=== PATIENT | male | born 1995 | race Caucasian/White ===

== ENCOUNTER 2018-12-23 11:36 | Emergency (ER) | payer SELFPAY ==
[~2018-12-23] VITALS: Ht 198.1 cm; Wt 94.3 kg
[2018-12-23 11:44] VITALS: BP 109/78
--- NOTE | 2018-12-23 12:58 | NUR ---
Patient ambulated to ER bed 10
[2018-12-23] MEDS ORDERED: CLINDAMYCIN 150 MG CAP PO ONE (13:15)
[2018-12-23] MEDS ORDERED: SULFAMETH/TRIMETH DS 800/160MG 1 TAB PO ONE (13:15)
--- NOTE | 2018-12-23 13:44 | NUR ---
C/O LEFT ELBOW / FOREARM PAIN , SWELLING, REDNESS, AND TENDERNESS X 2 DAYS SEEN IN [facility] 2 DAYS AGO---PT STATES HAD BLOOD DRAW SAME ARM PRIOR TO BECOMING RED AND SWELLING +2 RADIAL PULSE <3 SEC CAP REFILL LUE VSS; PATIENT POSITIONED FOR COMFORT; HOB ELEVATED; BEDRAILS UP X2; BED DOWN. ER MD MADE AWARE OF PT STATUS.
[2018-12-23 13:59] VITALS: BP 109/78
--- NOTE | 2018-12-23 14:00 | NUR ---
Patient discharged with v/s stable. Written and verbal after care instructions given and explained. Patient alert, oriented and verbalized understanding of instructions. Ambulatory with steady gait. All questions addressed prior to discharge. ID band removed. Patient advised to follow up with PMD. Rx of BACTRIM AND MOTRIN given. Patient educated on indication of medication including possible reaction and side effects. Opportunity to ask questions provided and answered. HOMELESSNESS APPROVED RESOURCES PROVIDED; HYGIENE PACKET PROVIDED; MEAL PACK PROVIDED.
[2018-12-24] MEDS ORDERED: RIVA20TA PO (03:58)
[2018-12-24] MEDS ORDERED: DOCU-299 PO (03:58)
[2018-12-24] MEDS ORDERED: TRAM50TA1 PO (03:58)
[2018-12-24] MEDS ORDERED: FERR324T11 PO (03:58)
[2018-12-24] MEDS ORDERED: OSIM40TA PO (03:58)
[2018-12-24] MEDS ORDERED: QUET50TA PO (03:58)
[2018-12-24] MEDS ORDERED: ATA25 PO (03:58)
[2018-12-24] MEDS ORDERED: AMLO2.5T PO (03:58)
[2018-12-24] MEDS ORDERED: LEVO5TAB12 PO (03:58)
== END 2018-12-23 14:00 | disposition home or self-care (01) ==
LOC: MED 11:36
DX: L03.114 Cellulitis of left upper limb (principal); F11.90 Opioid use, unspecified, uncomplicated
CPT/HCPCS: 99283

== ENCOUNTER 2018-12-23 17:54 | Inpatient (IN) | payer BC, MEDICAID ==
[~2018-12-23] VITALS: Ht 198.1 cm; Wt 93.9 kg
[2018-12-23 17:57] VITALS: BP 132/87
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
--- NOTE | 2018-12-23 18:10 | NUR ---
PT NOT ABLE TO GIVE URINE AT THIS TIME
--- NOTE | 2018-12-23 18:15 | NUR ---
TELEPSYCH CONSULT REQUEST ENTERED REQUESTED BY DR MUNOZ
[2018-12-23 19:14] LABS: BASOPHILS % (AUTO) 0.2 % (0.0-2.0); EOSINOPHILS % (AUTO) 0.4 % (0.0-4.0); HEMATOCRIT 37.1 % (36-52); HEMOGLOBIN 12.3 g/dL (12.0-18.0); LYMPHOCYTES # (AUTO) 1.7 K/uL (2.0-11.5); LYMPHOCYTES % (AUTO) 12.9 % (20.5-51.1); MEAN CORPUSCULAR HEMOGLOBIN 30 pg (27-31); MEAN CORPUSCULAR HGB CONC 33 g/dL (33-37); MEAN CORPUSCULAR VOLUME 91.2 fL (80-94); MONOCYTES # (AUTO) 1.2 K/uL (0.8-1.0); MONOCYTES % (AUTO) 8.8 % (1.7-9.3); NEUTROPHILS # (AUTO) 10.3 K/uL (1.8-7.7); NEUTROPHILS % (AUTO) 77.7 % (42.2-75.2); PLATELET COUNT (AUTO) 184 K/uL (140-450); RED BLOOD CELL COUNT(AUTO) 4.06 MIL/uL (4.20-6.10); WHITE BLOOD COUNT (AUTO) 13.2 K/uL (4.8-10.8)
--- NOTE | 2018-12-23 19:16 | NUR ---
PT IS NOT ON A HOLD YET, DR. MUNOZ WANT A TELEPSYCHO
[2018-12-23 19:27] LABS: ANION GAP 13.8 (8-16); CARBON DIOXIDE 24.8 mmol/L (21-32); CHLORIDE 101 mmol/L (98-107); CREATININE 0.8 mg/dL (0.7-1.3); GFR ARICAN-AMERICAN 151 mL/min (>90); GLUCOSE 75 mg/dL (74-106); POTASSIUM 3.6 mmol/L (3.5-5.1); SODIUM SERUM 136 mmol/L (136-145); UREA NITROGEN, BLOOD 13 mg/dL (7-18)
[2018-12-23 19:33] LABS: ACETAMINOPHEN < 0.5 ug/ml (10-30); ALBUMIN 3.5 g/dL (3.4-5.0); ASPARTATE AMINOTRANSFERASE 179 U/L (15-37); SALICYLATE 3.3 mg/dL (2.8-20.0)
[2018-12-23] MEDS ORDERED: OLANZapine 5 MG TAB PO SCH (21:00)
[2018-12-23 21:02] LABS: BARBITURATE, URINE NEG. ng/ml (NEG <=200); BENZODIAZEPINE, URINE NEG. ng/mL (NEG <=200); CANNABINOID, URINE POS. ng/mL (NEG <=50); COCAINE, URINE NEG. ng/mL (NEG <=300); OPIATE, URINE NEG. ng/mL (NEG <=2000); PHENCYCLIDINE SCREEN,URINE NEG. ng/mL (NEG <=25)
[2018-12-23] MEDS ORDERED: OLANZapine 5 MG TAB ONE (21:27)
--- NOTE | 2018-12-23 22:09 | NUR ---
[place] [employer] AT BEDSIDE.
--- NOTE | 2018-12-23 22:20 | NUR ---
[place] [employer] PLACING PT ON 5150 HOLD, SAFETY MEASURES IN ROOM, SITTER AT BEDSIDE.
--- NOTE | 2018-12-24 02:17 | NUR ---
[facility] CALLED WITH UPDATE: CALLED FOLLOWING HOSPITALS NO BEDS [facility];S/W [facility];S/W [facility];S/W [facility];S/W [facility]
[2018-12-24] MEDS ORDERED: ACETAMINOPHEN 325 MG TAB PO PRN (02:35)
[2018-12-24] MEDS ORDERED: DOCUSATE SODIUM 100 MG GELCAP PO PRN (02:35)
[2018-12-24] MEDS ORDERED: ONDANSETRON 4 MG/2 ML VIAL IM/IVP PRN (02:35)
[2018-12-24] MEDS ORDERED: LORazepam 2 MG/ML VIAL IVP PRN (03:10)
[2018-12-24 03:44] LABS: PROTHROMBIN TIME 9.6 secs (10.8-13.4)
[2018-12-24 03:55] LABS: MAGNESIUM 2.1 mg/dL (1.8-2.4); THYROID STIMULATING HORMONE 0.76 uIU/mL (0.34-3.74)
[2018-12-24] MEDS ORDERED: ATA25 PO (03:58)
[2018-12-24] MEDS ORDERED: AMLO2.5T PO (03:58)
[2018-12-24] MEDS ORDERED: OSIM40TA PO (03:58)
[2018-12-24] MEDS ORDERED: LEVO5TAB12 PO (03:58)
[2018-12-24] MEDS ORDERED: RIVA20TA PO (03:58)
[2018-12-24] MEDS ORDERED: FERR324T11 PO (03:58)
[2018-12-24] MEDS ORDERED: DOCU-299 PO (03:58)
[2018-12-24] MEDS ORDERED: TRAM50TA1 PO (03:58)
[2018-12-24] MEDS ORDERED: QUET50TA PO (03:58)
[2018-12-24 04:00] VITALS: BP 111/63
[2018-12-24] MEDS: NACL 0.9% 1,000 ML IV SCH ×2 (04:00→20:07)
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
--- NOTE | 2018-12-24 04:05 | NUR ---
PT IN BED NO S/S OF PAIN OR DISTRESS. SITTER AT BEDSIDE.
[2018-12-24 05:43] LABS: BASOPHILS % (AUTO) 0.3 % (0.0-2.0); EOSINOPHILS # (AUTO) 0.1 K/uL (0-0.4); EOSINOPHILS % (AUTO) 1.3 % (0.0-4.0); LYMPHOCYTES # (AUTO) 1.5 K/uL (2.0-11.5); LYMPHOCYTES % (AUTO) 14.6 % (20.5-51.1); MEAN CORPUSCULAR HEMOGLOBIN 31 pg (27-31); MEAN CORPUSCULAR HGB CONC 33 g/dL (33-37); MEAN CORPUSCULAR VOLUME 91.7 fL (80-94); MONOCYTES # (AUTO) 0.9 K/uL (0.8-1.0); MONOCYTES % (AUTO) 8.8 % (1.7-9.3); NEUTROPHILS # (AUTO) 7.9 K/uL (1.8-7.7); PLATELET COUNT (AUTO) 181 K/uL (140-450); RED BLOOD CELL COUNT(AUTO) 4.25 MIL/uL (4.20-6.10); RED CELL DISTRIBUTION WIDTH 14.1 % (11.6-13.7); WHITE BLOOD COUNT (AUTO) 10.5 K/uL (4.8-10.8)
[2018-12-24 05:44] LABS: ANION GAP 14.6 (8-16); CARBON DIOXIDE 24.6 mmol/L (21-32); CREATININE 0.8 mg/dL (0.7-1.3); POTASSIUM 3.2 mmol/L (3.5-5.1)
[2018-12-24 06:16] LABS: CHOL/HDL RATIO 2.2 (1-4.5)
--- NOTE | 2018-12-24 07:15 | NUR ---
REPORT GIVEN TO MCKENZIE EVERETT DAYSHIFT NURSE AT BEDSIDE FOR CONTINUITY OF CARE, PT IN STABLE CONDITION.
--- NOTE | 2018-12-24 07:19 | NUR ---
RECEIVED BEDSIDE REPORT FROM DONATION WORKER NURSE. PT HAVING SUICIDAL IDEATIONS, BUT EXPRESSES NO PLANS FOR SUICIDE. PT IS AAOX4, ON RA. IV ON THE RIGHT AC RUNNING NS AT 60ML/HR. PT ON A REGULAR DIET. PT AMBULATES TO RESTROOM. SKIN IS INTACT. NO SIGNS OF DISTRESS OR PAIN NOTED. BED IN LOW POSITION, CALL LIGHT WITHIN REACH. WILL ROUND FREQUENTLY.
[2018-12-24 08:00] VITALS: BP 108/59
[2018-12-24] MEDS: THIAMINE 100 MG TAB PO SCH (08:51)
[2018-12-24] MEDS: MULTIVITAMIN 1 TAB PO SCH (08:51)
[2018-12-24] MEDS: FOLIC ACID 1 MG TAB PO SCH (08:51)
[2018-12-24] MEDS: NICOTINE TRANSD SYS 14 MG/24 HR PATCH TD SCH (08:52)
--- NOTE | 2018-12-24 09:23 | NUR ---
ADMINISTERED MORNING MEDS TO PT. PATIENT TOLERATED MEDS WELL. ALL NEEDS MET AT THIS TIME. SITTER AT BEDSIDE 1:1. WILL CONTINUE TO ROUND FREQUENTLY ON PT.
--- NOTE | 2018-12-24 13:22 | NUR ---
CURRENTLY SITTING FOR PT 1:1. PT IS LAYING IN BED QUIETLY. WILL CONTINUE TO MONITOR PT FREQUENTLY.
[2018-12-24] MEDS: HYDROcodone/APAP 7.5/325 MG 1 TAB PO PRN ×2 (13:46→20:06)
--- NOTE | 2018-12-24 15:42 | NUR ---
PT IN BED SLEEPING. PT COMLAINED OF LOWER BACK PAIN WITH PAIN IN THE JAW AND BLE/BUE. NORCO WAS GIVEN FOR PAIN. ALL OTHER NEEDS MET AT THIS TIME. WILL CONTINUE TO MONITOR PT FOR MED EFFECTIVENESS
[2018-12-24 16:00] VITALS: BP 108/65
--- NOTE | 2018-12-24 17:24 | NUR ---
PT SLEEPING IN BED. NO SIGNS OF PAIN AT THIS TIME. BED IN LOW POSITION, CALL LIGHT WITHIN REACH. SITTER AT BEDSIDE. WILL CONTINUE TO MONITOR PT.
--- NOTE | 2018-12-24 19:30 | NUR ---
ENDORSED PT TO ELECTROSLAG WELDING MACHINE OPERATOR FOR CONTINUITY OF CARE. PT IN STABLE CONDITION AT THIS TIME.
--- NOTE | 2018-12-24 19:31 | NUR ---
RECEIVED REPORT FROM DAY SHIFT RN. PT IS AA0X4. ON ROOM AIR. NO S/S OF DISTRESS. PT IS CALM. ON 5150 HOLD FOR SUICIDAL IDEATION. DENIES ANY SUICIDAL IDEATION AT THIS TIME. IV ON RAC 18G NS INFUSING AT 60ML/HR. SKIN INTACT. PT AMBULATES TO RESTROOM. PT WITH 1:1 SITTER. PLAN OF CARE DISCUSSED. SAFETY MEASURES ARE IN PLACE. WILL CONTINUE TO MONITOR.
[2018-12-24] MEDS: SULFAMETH/TRIMETH DS 800/160MG 1 TAB PO SCH (20:06)
--- NOTE | 2018-12-24 20:06 | NUR ---
DUE MEDICATIONS GIVEN PT TOLERATED WELL. SAFETY MEASURES ARE IN PLACE.
[2018-12-24] MEDS ORDERED: OLANZapine 5 MG TAB PO SCH (21:00)
--- NOTE | 2018-12-25 | NUR ---
VS ARE WITHIN NORMAL LIMITS. PT RESTING COMFORTABLY IN BED. ALL NEEDS MET AT THIS TIME. SITTER BY BEDSIDE
[2018-12-25 00:04] VITALS: BP 102/48
--- NOTE | 2018-12-25 02:30 | NUR ---
PT SLEEPING COMFORTABLY IN BED. NO S/S OF DISTRESS. SITTER AT BEDSIDE.
--- NOTE | 2018-12-25 04:09 | NUR ---
Still no beds available at any of the designated facilities . [facility] intake stated possible admission in the AM . Kim EVERETT made aware.
--- NOTE | 2018-12-25 04:10 | NUR ---
SPOKE WITH [employer] MER. POSSIBLE ADMISSION TO [facility] IN AM. REQUEST TO FAX FACE SHEET TO FAX# [phone].
--- NOTE | 2018-12-25 04:50 | NUR ---
SPOKE WITH ASHLEIGH FROM [facility]. PT WAS ACCEPTED CAN BE TRANSFERRED AFTER 0800 TODAY. ACCEPTING . WILL MAKE DR AWARE. Addendum: 12/25/18 at 0533 by Kim Tanner RN [facility] NUMBER
--- NOTE | 2018-12-25 04:55 | NUR ---
SPOKE WITH ASHLEIGH AGAIN CANNOT ACCEPT PT AT THIS TIME D/T [facility]. SHE WILL CONSULT WITH NURSE AND CALL BACK TODAY AROUND 0800. WILL ENDORSED TO DAY SHIFT. CHARGE NURSE AWARE.
--- NOTE | 2018-12-25 05:50 | NUR ---
PT REFUSED BLOOD DRAW. DR GONZALEZ.
--- NOTE | 2018-12-25 06:54 | NUR ---
DUE MEDICATION ADMINISTERED. PT TOLERATED WELL. SITTER AT BEDSIDE.
[2018-12-25] MEDS ORDERED: POTASSIUM CHLORIDE 10 MEQ TABER PO ONE (07:00)
--- NOTE | 2018-12-25 07:15 | NUR ---
ENDORSED PT TO DAY SHIFT RN. PT IS IN STABLE CONDITION.
--- NOTE | 2018-12-25 07:16 | NUR ---
RECEIVED REPORT FROM PM NURSE AT BEDSIDE. PT SLEEPING. PT IS ON 5150 FOR SI. PT IS WITH 1:1 SITTER. HAS RT FA 22 G, NS INFUSING WELL. HAS SLIGHT REDNESS , POSSIBLE ABSCESS ON LFT HAND. ALL SAFETY MEASURE IN PLACE. NO DISTRESS NOTED AT THIS TIME. WILL CONTINUE TO MONITOR PT.
[2018-12-25 08:00] VITALS: BP 115/72
--- NOTE | 2018-12-25 08:26 | NUR ---
PATIENT HAS BEEN SCREENED AND CATEGORIZED LOW NUTRITION RISK. PATIENT WILL BE SEEN WITHIN 7 DAYS OF ADMISSION. 12/30/[address]
[2018-12-25] MEDS: HYDROcodone/APAP 7.5/325 MG 1 TAB PO PRN (09:43)
[2018-12-25] MEDS: FOLIC ACID 1 MG TAB PO SCH (09:43)
[2018-12-25] MEDS: MULTIVITAMIN 1 TAB PO SCH (09:43)
[2018-12-25] MEDS: SULFAMETH/TRIMETH DS 800/160MG 1 TAB PO SCH ×2 (09:44→21:30)
[2018-12-25] MEDS: THIAMINE 100 MG TAB PO SCH (09:44)
[2018-12-25] MEDS: NICOTINE TRANSD SYS 14 MG/24 HR PATCH TD SCH (09:47)
[2018-12-25] MEDS ORDERED: ESCITALOPRAM 20 MG TAB PO SCH (09:58)
[2018-12-25] MEDS ORDERED: LORazepam 2 MG/ML VIAL IVP PRN (10:55)
[2018-12-25] MEDS: NACL 0.9% 1,000 ML IV SCH (13:20)
[2018-12-25] MEDS ORDERED: LIDOCAINE 2% 1000 MG/50 ML VIAL INJ ONE (14:25)
[2018-12-25] MEDS ORDERED: LIDOCAINE 2% 1000 MG/50 ML VIAL INJ SCH (14:30)
--- NOTE | 2018-12-25 14:45 | NUR ---
OBTAINED CONSENT FROM PT FOR BEDSIDE I&D PROCEDURE ORDERED BY . PT KEPT NPO TILL SX TAKES PLACE. EXPLAINED PT NOT TO EAT ANYTHING . VERBALIZED UNDERSTANDING. PT LYING ON BED COMFORTABLY. NO SIGN OF DISTRESS NOTED. SITTER AT THE BEDSIDE. WILL CONTINUE TO MONITOR PT. RESIDENT AWARE OF THE PROCEDURE.
[2018-12-25 16:00] VITALS: BP 108/68
[2018-12-25] MEDS ORDERED: MORPHINE SULFATE 4 MG/ML SYR IVP SCH (17:45)
--- NOTE | 2018-12-25 17:51 | NUR ---
ADMINISTERED ONE TIME DOSE OF MORPHINE [address] MG [address] PT PER [address] LEI ORDER . PT TO GET I&D AT BEDSIDE. NO SIGN OF DISTRESS NOTED. WILL CONTINUE TO MONITOR PT.
--- NOTE | 2018-12-25 18:15 | NUR ---
DR LEI PERFORMED BEDSIDE I&D OF UPPER LFT EXTREMITY AT BEDSIDE. PT TOLERATED WELL. SPECIMEN COLLECTED FOR WOUND CULTURE. NO SIGN OF DISTRESS NOTED. SPECIMEN TO BE SENT TO LAB FOR WOUND CULTURE.
--- NOTE | 2018-12-25 18:58 | NUR ---
YAYO FROM [facility] CALLED ASKING IF PATIENT WILL BE DC TODAY. PATIENT HAS NO DC ORDER AT THIS TIME. SHE SAID SHE WILL CALL [facility].
--- NOTE | 2018-12-25 19:05 | NUR ---
ENDORSED PT TO PM NURSE AT BEDSIDE. PT IN STABLE CONDITION.
--- NOTE | 2018-12-25 19:05 | NUR ---
RECEIVED PT AWAKE ON BED, AAOX4, PT MANIFESTING AUDITORY HALLUCINATION AND OCCASIONALLY TALKING SOMEBODY IN THE ROOM, APPEARS CALM, DRESSING TO LEFT ARM DRY AND INTACT, TOLERABLE 2/10 PAIN AT THIS TIME, IVF INFUSING WELL,ON 5150 HOLD FOR SI, SITTER IN PLACE, SAFETY MEASURES IN PLACE, MONITORED CLOSELY.
--- NOTE | 2018-12-25 21:05 | NUR ---
RECEIVED REPORT FROM ISABELLA,CHARGE NURSE FOR CONTINUITY OF CARE. SEEN PT APPEARS ASLEEP BUT TOSSING AND TURNING IN BED.
--- NOTE | 2018-12-25 21:25 | NUR ---
AWAKEN PT. INFORMED PT THAT DUE MEDICATIONS WILL BE GIVEN. PT VERBALIZED "OK". TEACHINGS PROVIDED. PT SAID "OK". INITIAL ASSESSMENT DONE. IVF INFUSING WELL ON RT AC. PT TOOK MEDICATION AND WENT TO LAY BACK IN BED. PT DENIES ANY OTHER NEEDS. ASKED PT IF WHEN DID HE HAVE BM. PT SAID "I DON'T KNOW." WILL CONTINUE TO MONITOR. SAFETY REINFORCED.
[2018-12-25] MEDS: QUEtiapine FUMARATE 100 MG TAB PO SCH (21:29)
[2018-12-25 23:02] VITALS: BP 99/62
--- NOTE | 2018-12-25 23:05 | NUR ---
SEEN PT ASLEEP BUT EASILY AROUSABLE. VITAL SIGNS CHECKED. PT DENIES ANY DISCOMFORT. WILL CONTINUE TO MONITOR.
--- NOTE | 2018-12-26 02:30 | NUR ---
SEEN PT AWAKE ASKING FOR WARM BLANKET. PT GIVEN WARM BLANKET. PT DENIES ANY OTHER NEEDS. WILL CONTINUE TO MONITOR.
[2018-12-26 04:30] VITALS: BP 102/61
--- NOTE | 2018-12-26 04:30 | NUR ---
SEEN PT ASLEEP BUT WOKE UP. VITAL SIGNS CHECKED. PT NOT IN ANY DISCOMFORT. IVF INFUSING WELL. WILL CLOSELY MONITOR.
[2018-12-26] MEDS: NACL 0.9% 1,000 ML IV SCH (04:40)
--- NOTE | 2018-12-26 06:20 | NUR ---
PT REFUSED BLOOD DRAW AND WANTS SUPERVISOR LENS GENERATING TO COME BACK. PT DENIES ANY DISCOMFORT.
--- NOTE | 2018-12-26 07:27 | NUR ---
NOTIFIED [facility] THAT PATIENT IS MEDICALLY CLEARED.
--- NOTE | 2018-12-26 07:29 | NUR ---
RECEIVED REPORT FROM PM NURSE AT BEDSIDE. PT SLEEPING IN HIS BED AT THIS SIDE. NO SIGN OF DISTRESS NOTED. PT HAS IV SITE INTACT AND PATENT. IVF INFUSING WELL. PT WITH 1:1 SITTER. PT DENIES ANY PAIN AT THIS TIME . WILL CONTINUE TO MONITOR PT.
--- NOTE | 2018-12-26 09:15 | NUR ---
ADMINISTERED MEDS TO PT . TOLERATED WELL. PT WAS SLEEPING IN HIS BED. NO BEHAVIORAL ISSUES SEEN WITH PT AT THIS TIME. PT APPEARS CALM AND COOPERATIVE. NO SIGN OF AGITATION , NO DISTRESS NOTED THIS TIME. PT WITH SITTER. WILL CONTINUE TO MONITOR PT.
[2018-12-26] MEDS: FOLIC ACID 1 MG TAB PO SCH (09:19)
[2018-12-26] MEDS: MULTIVITAMIN 1 TAB PO SCH (09:20)
[2018-12-26] MEDS: NICOTINE TRANSD SYS 14 MG/24 HR PATCH TD SCH (09:20)
[2018-12-26] MEDS: SULFAMETH/TRIMETH DS 800/160MG 1 TAB PO SCH ×2 (09:20→20:07)
[2018-12-26] MEDS: ESCITALOPRAM 20 MG TAB PO SCH (09:20)
[2018-12-26] MEDS: THIAMINE 100 MG TAB PO SCH (09:20)
--- NOTE | 2018-12-26 09:48 | NUR ---
I CALLED [facility] AND SPOKE WITH KRYSTINA AND INFORMED HER THAT PATIENT IS NOT CLEARED MEDICALL, WAITING FOR CULTURE RESULTS.
[2018-12-26 09:59] LABS: BASOPHILS % (AUTO) 0.8 % (0.0-2.0); EOSINOPHILS # (AUTO) 0.2 K/uL (0-0.4); EOSINOPHILS % (AUTO) 3.9 % (0.0-4.0); HEMATOCRIT 44.9 % (36-52); HEMOGLOBIN 14.6 g/dL (12.0-18.0); LYMPHOCYTES # (AUTO) 1.5 K/uL (2.0-11.5); LYMPHOCYTES % (AUTO) 29.4 % (20.5-51.1); MEAN CORPUSCULAR HEMOGLOBIN 30 pg (27-31); MEAN CORPUSCULAR HGB CONC 33 g/dL (33-37); MONOCYTES # (AUTO) 0.7 K/uL (0.8-1.0); MONOCYTES % (AUTO) 13.7 % (1.7-9.3); NEUTROPHILS # (AUTO) 2.6 K/uL (1.8-7.7); NEUTROPHILS % (AUTO) 52.2 % (42.2-75.2); PLATELET COUNT (AUTO) 245 K/uL (140-450); RED BLOOD CELL COUNT(AUTO) 4.83 MIL/uL (4.20-6.10); RED CELL DISTRIBUTION WIDTH 14.3 % (11.6-13.7)
[2018-12-26 12:02] LABS: ANION GAP 10.6 (8-16); CARBON DIOXIDE 25.5 mmol/L (21-32); CREATININE 0.9 mg/dL (0.7-1.3); POTASSIUM 4.1 mmol/L (3.5-5.1)
--- NOTE | 2018-12-26 12:30 | NUR ---
CHECKED ON PT . EATING HIS LUNCH. PT SITTING ON THE SIDE OF THE BED. NO SIGN OF DISTRESS NOTED. TALKED TO DR OH ABOUT PLAN FOR THE PT. STATES WAITING FOR THE WOUND CULTURE REPORT AND FOR HIS PLACEMENT AFTER PSYCH EVALUATION. PT TO BEE BY DR MENENDEZ. PT DRESSING WILL BE ASSESSED BY BY DR LEI , PT IS S/P I&D OF LEFT AC PUSTULE /ABSCESS. PT DRESSING APPEARS INTACT AND DRY AT THIS TIME. WILL CONTINUE TO MONITOR PT.
[2018-12-26] MEDS: MORPHINE SULFATE 2 MG/ML SYR IVP PRN ×2 (13:26→19:33)
[2018-12-26] MEDS: POLYVINYL ALCOHOL 1.4% OP 15 ML SOL OP PRN ×2 (13:27→16:18)
--- NOTE | 2018-12-26 13:30 | NUR ---
PER DR LEI ORDER, PERFORMED DRESSING CHANGE. WOUND DIMENSION WAS NOTED 5 CM X 0.3 CM X 0.8 CM DEPTH. MINIMUM SS DRAINAGE, NO ODOR NOTED. PT TOLERATED WELL. ADMINISTERED MORPHINE AFTER DRESSING PER PT REQUEST. COMPLAINING OF PAIN . INCISION WAS PACKED WITH DRY DRESSING, COVERED WITH KERLIX AND WRAPPED WITH SUHAS DRESSING. PT TOLERATED WELL. NO SIGN OF DISTRESS NOTED. PT WITH 1:1 SITTER. WILL CONTINUE TO MONITOR PT.
--- NOTE | 2018-12-26 14:35 | NUR ---
CHECKED ON PT. SLEEPING COMFORTABLY IN HIS BED. NO SIGN OF DISTRESS NOTED. WILL CONTINUE TO MONITOR PT.
[2018-12-26 16:00] VITALS: BP 108/61
--- NOTE | 2018-12-26 16:09 | NUR ---
CHECKED ON PT . COMPLAINING OF PAIN 8/10 AT THE INCISION SITE. WILL MEDICATE WITH PAIN MEDS . NO SIGN OF DISTRESS NOTED. PT WITH SITTER .WILL CONTINUE TO MONITOR PT.
[2018-12-26] MEDS: HYDROcodone/APAP 7.5/325 MG 1 TAB PO PRN (16:16)
--- NOTE | 2018-12-26 17:30 | NUR ---
CHECKED ON PT. STATES HAS PAIN AT THIS TIME. PT ADMINISTERED MORPHINE AND NORCO ALREADY. NO PAIN MEDS DUE AT THIS TIME. PT STATES TO WAIT TILL THE PT MEDS ARE DUE. PT STATES PAIN IS AT THE I&D SITE. NO SIGN OF DISTRESS NOTED. PT ASKING FOR READING MATERIALS. DIE BARBER MADE AWARE, STATES WILL BRING FROM THE ADMISSION DEPT. PT GIVEN APPLE JUICE AND THE MILK. WILL CONTINUE TO MONITOR PT.
--- NOTE | 2018-12-26 19:10 | NUR ---
ENDORSED PT TO PM NURSE AT BEDSIDE. PT IN STABLE CONDITION.
--- NOTE | 2018-12-26 19:12 | NUR ---
RECEIVED PT AWAKE ON BED, COMPLAINING OF LEFT ARM PAIN, WILL MEDICATE PRN, LEFT ARM DRESSING DRY AND INTACT, OCCASIONALLY TALKS TO SELF, DENIES SI AT THIS TIME, MAINTAIN ON 5150 STATUS, SITTER IN PLACE, ALL NEEDS ATTENDED.
[2018-12-26] MEDS: QUEtiapine FUMARATE 100 MG TAB PO SCH (20:07)
--- NOTE | 2018-12-26 20:10 | NUR ---
DUE MEDS TAKEN, PT STATED RELIEF OF PAIN FROM MORPHINE IVP, ALL NEEDS ATTENDED.
--- NOTE | 2018-12-27 01:00 | NUR ---
PT SLEEPING, EASILY AROUSABLE, VITAL SIGNS STABLE, DENIES PAIN, PT WENT BACK TO SLEEP, SITTER IN PLACE, CONTINUE TO MONITOR CLOSELY.
[2018-12-27 01:14] VITALS: BP 108/64
--- NOTE | 2018-12-27 04:53 | NUR ---
Notified by charge nurse Meli EVERETT , pt is still pending medical clearance, also made charge nurse aware that [employer] is working on making a possible vacancy in the late morning , considering pt is medically cleared.
--- NOTE | 2018-12-27 05:30 | NUR ---
PT SLEEPING, NO SIGNS OF DISTRESS, LEFT ARM DRESSING DRY AND INTACT, MONITORED CLOSELY.
--- NOTE | 2018-12-27 07:05 | NUR ---
RECEIVED PATIENT REPORT AT BEDSIDE. PATIENT IS ASLEEP BUT AROUSABLE. NO S/S OF DISTRESS. PATIENT WITH 1:1 SITTER. WILL CONTINUE TO MONITOR
--- NOTE | 2018-12-27 07:12 | NUR ---
PT SLEEPING, EASILY AROUSABLE, NO DISTRESS NOTED, REPORT GIVEN TO MARGUERITE CORONADO FOR CONTINUITY OF CARE.
[2018-12-27 08:00] VITALS: BP 108/65
[2018-12-27] MEDS: THIAMINE 100 MG TAB PO SCH (09:09)
[2018-12-27] MEDS: MULTIVITAMIN 1 TAB PO SCH (09:09)
[2018-12-27] MEDS: FOLIC ACID 1 MG TAB PO SCH (09:09)
[2018-12-27] MEDS: SULFAMETH/TRIMETH DS 800/160MG 1 TAB PO SCH (09:09)
[2018-12-27] MEDS: ESCITALOPRAM 20 MG TAB PO SCH (09:09)
[2018-12-27] MEDS: NICOTINE TRANSD SYS 14 MG/24 HR PATCH TD SCH (09:10)
[2018-12-27] MEDS: MORPHINE SULFATE 2 MG/ML SYR IVP PRN (09:12)
--- NOTE | 2018-12-27 10:15 | NUR ---
PATIENT REFUSES TO HAVE HIS WOUND DRESSING CHANGE DONE AT THIS TIME
--- NOTE | 2018-12-27 10:16 | NUR ---
SPOKE WITH DUYEN FROM [facility]. PER DUYEN, PATIENT HAS BEEN ACCEPTED AND CAN BE TRANSFERRED THERE ONCE TRANSPORT IS ARRANGED.
[2018-12-27] MEDS ORDERED: CLINDAMYCIN 150 MG CAP PO SCH (12:00)
[2018-12-27] MEDS ORDERED: ESCI20TA47 PO (12:49)
[2018-12-27] MEDS ORDERED: THIA-34 PO (12:49)
[2018-12-27] MEDS ORDERED: NICO14TD30 TD (12:49)
[2018-12-27] MEDS ORDERED: QUET100T44 PO (12:49)
[2018-12-27] MEDS ORDERED: ARTOP OP (12:49)
[2018-12-27] MEDS ORDERED: FOLI1TAB90 PO (12:49)
[2018-12-27] MEDS ORDERED: MULT-405 PO (12:49)
[2018-12-27] MEDS ORDERED: CLIN150C15 PO (12:49)
[2018-12-27] MEDS: HYDROcodone/APAP 7.5/325 MG 1 TAB PO PRN (12:54)
--- NOTE | 2018-12-27 12:58 | NUR ---
Called [facility] and spoke with Crystal. Accepting MD for pt is Dr. Castro and pt can be transported to [facility] anytime now. The room will be assigned to the pt once the pt gets there per Crystal.
--- NOTE | 2018-12-27 13:04 | NUR ---
Transportation arranged with [facility] and they will pepper picker pt between 60-90 mins from now. Grace Merino RN [facility] will pepper picker pt between 60-90 mins from now.
--- NOTE | 2018-12-27 13:51 | NUR ---
PATIENT PICKED UP BY [facility] TRANSPORT TO BE TRANSFERRED TO [facility]. IV LINE DISCONTINUED. DISCHARGE INSTRUCTIONS GIVEN. PATIENT VERBALIZED UNDERSTANDING. PT LEFT WITH ALL HIS BELONGINGS AND DISCHARGE PAPERS. PATIENT LEFT IN STABLE CONDITION
== END 2018-12-27 13:58 | disposition designated cancer center or children's hospital (05) | DRG 854 ==
LOC: MED 17:54 → MTU 12-24 02:34
PROVIDERS: ADMIT General Practice; ATTEND General Practice
PROC: 0J9K0ZZ Drainage of Left Hand Subcutaneous Tissue and Fascia, Open Approach (ICD-10-PCS; principal; 2018-12-25)
DX: A41.9 Sepsis, unspecified organism (principal); L03.114 Cellulitis of left upper limb; R45.851 Suicidal ideations; L02.414 Cutaneous abscess of left upper limb; E83.51 Hypocalcemia; F20.9 Schizophrenia, unspecified; F11.10 Opioid abuse, uncomplicated; F17.210 Nicotine dependence, cigarettes, uncomplicated; F29 Unspecified psychosis not due to a substance or known physiological condition; F15.10 Other stimulant abuse, uncomplicated; F12.10 Cannabis abuse, uncomplicated; F10.10 Alcohol abuse, uncomplicated; E87.6 Hypokalemia; B19.20 Unspecified viral hepatitis C without hepatic coma; F32.9 Major depressive disorder, single episode, unspecified; Z59.0 Homelessness; Z91.19 Patient's noncompliance with other medical treatment and regimen; Z79.899 Other long term (current) drug therapy; Z91.5 Personal history of self-harm
CPT/HCPCS: 36415; 71045; 76536; 76700; 80048; 80053; 80305; 82150; 83036; 83605; 83690; 83735; 83880; 84100; 84443; 84450; 85025; 85610; 85730; 87040; 87070; 87075; 87081; 87205; 93005; 93971; 99285; G0480; G0482; J2001; J2270; J7030; Q0092